=== PATIENT | female | born 1985 | race Caucasian/White ===

== ENCOUNTER 2017-09-14 09:50 | Emergency (ER) | payer OTHER ==
[~2017-09-14] VITALS: Ht 157.5 cm; Wt 84.5 kg
[~2017-09-14 09:50] MED LIST: ALPR1TAB3 PO
[2017-09-14 09:53] VITALS: TEMP 36.3; Ht 157.5 cm; Wt 84.5 kg
--- NOTE | 2017-09-14 10:18 | EMERGENCY ROOM VISIT NOTE ---
History Report prepared by Shanel: Magdalena Lance Under the Supervision of: Dr. Abad Hamilton M.D. 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 She currently rates her pain a 7/10 in severity. She notes a history of UTIs and kidney infections. She states her pain feels similar to when she previously had a kidney infection although she denies having urinary symptoms recently. She notes diarrhea that has been ongoing all year. She reports diarrhea every day. She denies any vomiting. She is unsure if she has had a recent fever, though states that she has been sweating a lot even during the cold weather. She notes that she has had her menstrual cycle once in 11 months. Her LNMP was May. She notes that she is not currently . She reports that two years ago she tested positive with Hepatitis C. She does admit to IV drug use in the past but has not used IV drugs in a very long time. She also notes sores on both arms. She has a history of sores, though they were previously located on her buttocks. She did require I&D at that time. She is unsure of any history of MRSA. She does state that she squeezed the sore near left arm and pus came out. She does not have a family doctor. She states that she does see a psychiatrist. 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 Review of Systems See HPI for pertinent positives & negatives. A total of 10 systems reviewed and were otherwise negative. Past Medical & Surgical Medical Problems: (1) Abscess (2) Hepatitis C (3) HTN (hypertension) (4) Kidney infection (5) UTI (urinary tract infection) Family History Cancer Hypertension Seizures Social History Smoking Status: Current Every Day Smoker Alcohol Use: none Occupation Status: employed Current/Historical Medications Scheduled Alprazolam (Xanax), 1 MG PO TID Doxycycline Hyclate (Vibramycin), 100 MG PO BID Gabapentin (Neurontin), 800 MG PO TID Ibuprofen (Ibuprofen), 800 MG PO TID Zolpidem Tartrate (Ambien), 10 MG PO HS Allergies Coded Allergies: Penicillins (Unverified Allergy, Unknown, UNKNOWN, 09/14/17) Sulfa Antibiotics (Unverified Allergy, Unknown, SWELLING, 09/14/17) Physical Exam Vital Signs Date Time Temp Pulse Resp B/P (MAP) Pulse Ox O2 Delivery O2 Flow Rate FiO2 09/14/17 13:10 89 129/70 99 09/14/17 09:53 36.3 100 18 129/75 98 Room Air Physical Exam Constitutional: Vital signs reviewed. Eyes: Pupils are equal round reactive to light. Conjunctiva are noninjected. ENT: Pharynx is clear without erythema or exudate. Mucous membranes are moist. Neck supple without meningeal signs. Respiratory: Clear to auscultation bilaterally. Breath sounds are equal bilaterally. Cardiovascular: Regular rate and rhythm. No rubs or gallops. GI: Soft, nondistended and nontender. Bowel sounds are present. Musculoskeletal: No peripheral edema. No lower extremity tenderness. No CVA tenderness. Integumentary: No cyanosis. One cm cutaneous abscess to left upper arm without drainage or cellulitis. Similar one cm abscess to right forearm without drainage or cellulitis. Neurological: The patient is awake and alert. No focal deficits. Psychiatric: Normal affect. Medical Decision & Procedures ER Provider Diagnostic Interpretation: Radiology results as stated below per my review and the radiologist's interpretation: CT OF THE ABDOMEN AND PELVIS WITHOUT CONTRAST, STONE PROTOCOL CLINICAL HISTORY: Right flank pain. Evaluate for stone. COMPARISON STUDY: None. TECHNIQUE: Helical axial images of the abdomen and pelvis were obtained without IV or oral contrast according to renal stone protocol. A dose lowering technique was utilized adhering to the principles of ALARA. FINDINGS: Lung bases are clear. A punctate 1 mm right renal calculus is noted. There are are no ureteral calculi. There is no hydronephrosis or hydroureter. Evaluation of the remainder of the abdomen and pelvis is suboptimal on this unenhanced exam. There is probable fatty infiltration of the liver. There is no biliary or pancreatic ductal dilatation. No calcified gallstones are noted. Equivocal gallbladder wall thickening is likely artifactual. Unenhanced images of the spleen, adrenal glands and pancreas are normal. There are diverticula of the second portion of the duodenum. There is no evidence for a bowel obstruction. The appendix is normal. Pelvic calcifications reflect phleboliths. The ovaries are not enlarged. There is no lymphadenopathy. There is no ascites. Suspected subcutaneous fat necrosis of the upper left buttock is noted. IMPRESSION: 1. Punctate 1 mm right renal calculus. No ureteral calculi or hydronephrosis. 2. No bowel obstruction. Normal appendix. 3. Probable fatty infiltration of the liver. 4. Equivocal gallbladder wall thickening, likely within normal limits. No pericholecystic infiltration. The findings are likely within normal limits however a right upper quadrant ultrasound could be obtained as indicated. 5. 5.1 cm subcutaneous abnormality of the upper left buttock. While nonspecific, this may reflect fat necrosis and could be correlated with trauma history. Electronically signed by: Apolinar Alford M.D. 09/14/2017 12:19 PM Dictated Date/Time: 09/14/2017 12:08 PM Laboratory Results 09/14/17 10:35 Red Blood Count 4.93, Mean Corpuscular Volume 89.0, Mean Corpuscular Hemoglobin 30.4, Mean Corpuscular Hemoglobin Concent 34.2, Mean Platelet Volume 9.5, Neutrophils (%) (Auto) 64.8, Lymphocytes (%) (Auto) 23.8, Monocytes (%) (Auto) 9.0, Eosinophils (%) (Auto) 1.7, Basophils (%) (Auto) 0.4, Neutrophils # (Auto) 7.53, Lymphocytes # (Auto) 2.76, Monocytes # (Auto) 1.05, Eosinophils # (Auto) 0.20, Basophils # (Auto) 0.05 09/14/17 10:35 Test 09/14/17 00:00 09/14/17 10:35 09/14/17 12:12 Urine Color YELLOW Urine Appearance CLEAR (CLEAR) Urine pH 6.0 (4.5-7.5) Urine Specific [place] 1.011 (1.000-1.030) Urine Protein NEG (NEG) Urine Glucose (UA) NEG (NEG) Urine Ketones NEG (NEG) Urine Occult Blood NEG (NEG) Urine Nitrite NEG (NEG) Urine Bilirubin NEG (NEG) Urine Urobilinogen NEG (NEG) Urine Leukocyte Esterase TRACE (NEG) Urine WBC (Auto) 1-5 /hpf (0-5) Urine RBC (Auto) 0-4 /hpf (0-4) Urine Hyaline Casts (Auto) 0 /lpf (0-5) Urine Epithelial Cells (Auto) >30 /lpf (0-5) Urine Bacteria (Auto) NEG (NEG) Urine Test NEG (NEG) White Blood Count 11.62 K/uL (4.8-10.8) Red Blood Count 4.93 M/uL (4.2-5.4) Hemoglobin 15.0 g/dL (12.0-16.0) Hematocrit 43.9 % (37-47) Mean Corpuscular Volume 89.0 fL (80-100) Mean Corpuscular Hemoglobin 30.4 pg (25-34) Mean Corpuscular Hemoglobin Concent 34.2 g/dl (32-36) Platelet Count 360 K/uL (130-400) Mean Platelet Volume 9.5 fL (7.4-10.4) Neutrophils (%) (Auto) 64.8 % Lymphocytes (%) (Auto) 23.8 % Monocytes (%) (Auto) 9.0 % Eosinophils (%) (Auto) 1.7 % Basophils (%) (Auto) 0.4 % Neutrophils # (Auto) 7.53 K/uL (1.4-6.5) Lymphocytes # (Auto) 2.76 K/uL (1.2-3.4) Monocytes # (Auto) 1.05 K/uL (0.11-0.59) Eosinophils # (Auto) 0.20 K/uL (0-0.5) Basophils # (Auto) 0.05 K/uL (0-0.2) RDW Standard Deviation 44.3 fL (36.4-46.3) RDW Coefficient of Variation 13.5 % (11.5-14.5) Immature Granulocyte % (Auto) 0.3 % Immature Granulocyte # (Auto) 0.03 K/uL (0.00-0.02) Anion Gap 6.0 mmol/L (3-11) Est Creatinine Clear Calc Drug Dose 117.4 ml/min Estimated GFR () 133.8 Estimated GFR (Non- 115.5 BUN/Creatinine Ratio 8.7 (10-20) Calcium Level 9.2 mg/dl (8.5-10.1) Total Bilirubin 0.2 mg/dl (0.2-1) Direct Bilirubin < 0.1 mg/dl (0-0.2) Aspartate Amino Transf (AST/SGOT) 51 U/L (15-37) Alanine Aminotransferase (ALT/SGPT) 96 U/L (12-78) Alkaline Phosphatase 101 U/L (45-117) Total Protein 8.4 gm/dl (6.4-8.2) Albumin 4.3 gm/dl (3.4-5.0) Prothrombin Time 10.6 SECONDS (9.0-12.0) Prothromb Time International Ratio 1.0 (0.9-1.1) Activated Partial Thromboplast Time 26.8 SECONDS (21.0-31.0) Partial Thromboplastin Ratio 1.0 Date/Time Source Procedure Growth Status 09/14/17 11:50 Nasal MRSA DNA Surveillance Screen - Final Specimen Negative for MRSA by DNA Probe Complete Laboratory results as reviewed by me. ED Course 1001: The patient was evaluated in room B10. A complete history and physical exam was performed. 1135: I reassessed the patient at this time. I discussed the results and treatment plan with the patient. I recommended a CT A/P and the patient agreed. 1236: I reassessed the patient at this time. She is feeling better and resting comfortably. I discussed the results and treatment plan with the patient. I answered all pertaining questions that she had. She expressed understanding and verbalized agreement. The patient will be discharged home. Medical Decision This is a 31-year-old female who presents with flank pain, chronic diarrhea, irregular periods and sores. Differential diagnosis includes UTI, pyelonephritis, MRSA, cutaneous abscess, functional diarrhea, dysmenorrhea. I did perform a limited focused review of portions of the patient's old chart on the electronic medical record. The patient has had no prior visits to this hospital. I did evaluate the patient as noted above. The patient is presenting today with mostly chronic symptoms. She has not seen a doctor in a long time other than her psychiatrist. She has multiple chronic conditions including irregular menstrual cycles. She also complains of chronic diarrhea which has been going on for over a year. She has right-sided flank pain which has been going on for 2 months without urinary symptoms. She has a cutaneous abscess on her left upper arm and right forearm. They do not require I&D. IV access was established. I did order and personally review the patient's urinalysis as described above. A urine culture was sent. MRSA screening nasal swab is negative. I did order and review the patient's blood work as noted in the electronic medical record. Her LFTs are slightly elevated. She does have a history of hepatitis C. I did order a CT of the abdomen and pelvis. I did review the images myself as well as the radiology report as described above. There was some questionable gallbladder wall thickening but the patient has no pain in that area. I did discuss the test results with the patient. I did recommend she follow up with a primary care physician as well as a political organizer for further evaluation. I did recommend treating her with antibiotics to cover MRSA for her abscesses. She was given a prescription for doxycycline and discharged in good condition. Medication Reconcilliation Current Medication List: was personally reviewed by me Blood Pressure Screening Patient's blood pressure: Elevated blood pressure Blood pressure disposition: Referred to PCP Impression Primary Impression: Right flank pain Additional Impressions: Amenorrhea Cutaneous abscess Scribe Attestation The scribe's documentation has been prepared under my direct and personally reviewed by me in its entirety. I confirm that the note above accurately reflects all work, treatment, procedures, and medical decision making performed by me. Departure Information Dispostion Home / Self-Care Prescriptions Doxycycline Hyclate (VIBRAMYCIN) 100 Mg Cap 100 MG PO BID for 10 Days, #20 CAP Prov: Abad Hamilton M.D. 09/14/17 Referrals No Doctor, Assigned (PCP) Forms HOME CARE DOCUMENTATION FORM, IMPORTANT VISIT INFORMATION, WORK / SCHOOL INSTRUCTIONS Patient Instructions ED Amenorrhea, ED Flank Pain Uncertain Cause, My [facility] Additional Instructions You have been examined and treated today on an emergency basis only. This is not a substitute for, or an effort to provide, complete comprehensive medical care. It is impossible to recognize and treat all injuries or illnesses in a single emergency department visit. It is therefore important that you follow up closely with your physician and political organizer. Call as soon as possible for an appointment. Return for worsening symptoms or if you develop fever, vomiting, or any other concerning symptoms. Problem Qualifiers Additional Impressions: Cutaneous abscess Site of cutaneous abscess: extremity Site of cutaneous abscess of extremity: upper extremity Laterality: unspecified laterality Qualified Codes: L02.419 - Cutaneous abscess of limb, unspecified
[2017-09-14] MEDS ORDERED: GABA800T PO (10:55)
[2017-09-14] MEDS ORDERED: MTR800 PO (10:55)
[2017-09-14] MEDS ORDERED: ZOLP10TA PO (10:55)
[2017-09-14 10:59] LABS: BASO % 0.4 %; BASO ABS # 0.05 K/uL (0-0.2); EOS % 1.7 %; HEMATOCRIT 43.9 % (37-47); IG# 0.03 K/uL (0.00-0.02); LYMPH % 23.8 %; LYMPH ABS # 2.76 K/uL (1.2-3.4); MEAN CORPUSCULAR HEMOGLOBIN 30.4 pg (25-34); MEAN CORPUSCULAR HGB CONC 34.2 g/dl (32-36); MEAN PLATELET VOLUME 9.5 fL (7.4-10.4); MONO ABS # 1.05 K/uL (0.11-0.59); NEUT % 64.8 %; NEUT ABS # 7.53 K/uL (1.4-6.5); PLATELET COUNT 360 K/uL (130-400); RED CELL DISTRIBUTION WIDTH CV 13.5 % (11.5-14.5); RED CELL DISTRIBUTION WIDTH SD 44.3 fL (36.4-46.3); WHITE BLOOD COUNT 11.62 K/uL (4.8-10.8)
[2017-09-14 11:16] LABS: ALBUMIN 4.3 gm/dl (3.4-5.0); ALT/SGPT 96 U/L (12-78); AST/SGOT 51 U/L (15-37); BLOOD UREA NITROGEN 6 mg/dl (7-18); CALCIUM 9.2 mg/dl (8.5-10.1); CARBON DIOXIDE 24 mmol/L (21-32); GLUCOSE 108 mg/dl (70-99); POTASSIUM 3.6 mmol/L (3.5-5.1); SODIUM 135 mmol/L (136-145)
[2017-09-14 11:19] LABS: ALKALINE PHOSPHATASE 101 U/L (45-117); TOTAL PROTEIN 8.4 gm/dl (6.4-8.2)
--- NOTE | 2017-09-14 12:20 | DIAGNOSTIC IMAGING REPORT ---
CT OF THE ABDOMEN AND PELVIS WITHOUT CONTRAST, STONE PROTOCOL CLINICAL HISTORY: Right flank pain. Evaluate for stone. COMPARISON STUDY: None. TECHNIQUE: Helical axial images of the abdomen and pelvis were obtained without IV or oral contrast according to renal stone protocol. A dose lowering technique was utilized adhering to the principles of ALARA. FINDINGS: Lung bases are clear. A punctate 1 mm right renal calculus is noted. There are are no ureteral calculi. There is no hydronephrosis or hydroureter. Evaluation of the remainder of the abdomen and pelvis is suboptimal on this unenhanced exam. There is probable fatty infiltration of the liver. There is no biliary or pancreatic ductal dilatation. No calcified gallstones are noted. Equivocal gallbladder wall thickening is likely artifactual. Unenhanced images of the spleen, adrenal glands and pancreas are normal. There are diverticula of the second portion of the duodenum. There is no evidence for a bowel obstruction. The appendix is normal. Pelvic calcifications reflect phleboliths. The ovaries are not enlarged. There is no lymphadenopathy. There is no ascites. Suspected subcutaneous fat necrosis of the upper left buttock is noted. IMPRESSION: 1. Punctate 1 mm right renal calculus. No ureteral calculi or hydronephrosis. 2. No bowel obstruction. Normal appendix. 3. Probable fatty infiltration of the liver. 4. Equivocal gallbladder wall thickening, likely within normal limits. No pericholecystic infiltration. The findings are likely within normal limits however a right upper quadrant ultrasound could be obtained as indicated. 5. 5.1 cm subcutaneous abnormality of the upper left buttock. While nonspecific, this may reflect fat necrosis and could be correlated with trauma history. Electronically signed by: Apolinar Alford M.D. 09/14/2017 12:19 PM Dictated Date/Time: 09/14/2017 12:08 PM
[2017-09-14] MEDS ORDERED: DOXY100C2 PO (12:42)
[2017-09-14 12:45] LABS: PTT PATIENT 26.8 SECONDS (21.0-31.0)
[2017-09-14 13:10] VITALS: BP 129/70; PULSE 89; O2SAT 99
== END 2017-09-14 13:13 | disposition home or self-care (01) ==
LOC: C.EDB 09:52
DX: N91.2 Amenorrhea, unspecified (principal); L02.91 Cutaneous abscess, unspecified; R10.30 Lower abdominal pain, unspecified; I10 Essential (primary) hypertension; B19.20 Unspecified viral hepatitis C without hepatic coma; F17.200 Nicotine dependence, unspecified, uncomplicated; Z86.19 Personal history of other infectious and parasitic diseases; Z87.440 Personal history of urinary (tract) infections; Z79.899 Other long term (current) drug therapy; Z88.0 Allergy status to penicillin; Z88.2 Allergy status to sulfonamides; Z80.9 Family history of malignant neoplasm, unspecified; Z82.49 Family history of ischemic heart disease and other diseases of the circulatory system; Z82.3 Family history of stroke

== ENCOUNTER 2017-10-07 09:19 | Emergency (ER) | payer OTHER ==
[~2017-10-07] VITALS: Ht 160 cm; Wt 86.5 kg
[~2017-10-07 09:19] MED LIST changes: +DOXY100C2 PO; +GABA800T PO; +MTR800 PO; +ZOLP10TA PO
[2017-10-07 09:20] VITALS: TEMP 36.7; Ht 160 cm; Wt 86.5 kg
[2017-10-07] MEDS ORDERED: CLIN300C2 PO (09:49)
--- NOTE | 2017-10-07 09:51 | EMERGENCY ROOM VISIT NOTE ---
ED Visit Note First contact with patient: 09:32 CHIEF COMPLAINT: Multiple skin wounds HISTORY OF PRESENT ILLNESS: This 32-year-old female patient presents to the emergency department, ambulatory, complaining of multiple skin wounds which she noticed yesterday. The patient states she has history of chronic MRSA infections, and does get skin infections frequently. She states yesterday, she noticed drainage from one wound on the left breast running down her shirt. She states there was "a lot of drainage". There is no active drainage at this time. The patient denies any systemic symptoms including fever, chills nausea, vomiting. She denies any redness or cellulitic changes surrounding the wounds. She does have multiple wounds on the bilateral breasts, chest wall, and anterior arms. She does have a history of IV drug use, but states she has not used any IV drugs recently. She has not scheduled a follow-up appointment with her primary care provider. The patient was recently on doxycycline for the infections. She states she did not notice much improvement in her symptoms with this treatment. REVIEW OF SYSTEMS: A 10 system review of systems was performed with positives and pertinent negatives listed in the history of present illness. All other systems were reviewed and are negative. ALLERGIES: Penicillin, sulfa MEDICATIONS: Xanax, gabapentin, ibuprofen, Ambien PMH: Chronic MRSA SOCIAL HISTORY: The patient lives locally with family. She denies drug, alcohol use. She admits to smoking Half Pack of Cigarettes per Day. PHYSICAL EXAM: VITALS: Vitals are noted on the nurse's note and reviewed by myself. Vital signs stable. GENERAL: This is a 32-year-old white female, in no acute distress, nondiaphoretic, well-developed well-nourished. SKIN: Multiple cutaneous nodules which are scabbed over on the bilateral forearms, upper arms, and breasts. There is no active drainage. No cellulitic changes or obvious abscess. EMERGENCY DEPARTMENT COURSE: The patient was seen in the emergency department as above. She appears to be suffering from chronic cutaneous abscesses, but there is no obvious cellulitis or drainable abscess noted on exam. I did review the patient's previous EMR, and the patient's hepatic function testing was elevated, but she does have a history of chronic hepatitis C. The patient does not note significant improvement while on doxycycline, so she will be switched to clindamycin. I did discuss with the patient the importance of outpatient follow-up, as she may need to be started on suppressive therapy. The patient was in agreement. Discharge instructions reviewed, the patient was discharged home in good condition. I attest that I have personally reviewed the patient's current medication list. Patient was found to have normal blood pressure on screening and does not require follow-up. Differential diagnosis includes cutaneous abscess, cellulitis, IV drug use, cyst , hepatic abnormality, chronic infection, malignancy, and others DIAGNOSIS: Multiple cutaneous abscesses Problem List Medical Problems: (1) Abscess Status: Resolved (2) Hepatitis C Status: Chronic (3) HTN (hypertension) Status: Chronic (4) Kidney infection Status: Resolved (5) UTI (urinary tract infection) Status: Resolved Current/Historical Medications Scheduled Alprazolam (Xanax), 1 MG PO TID Clindamycin Hcl (Cleocin), 300 MG PO QID Doxycycline Hyclate (Vibramycin), 100 MG PO BID Gabapentin (Neurontin), 800 MG PO TID Ibuprofen (Ibuprofen), 800 MG PO TID Zolpidem Tartrate (Ambien), 10 MG PO HS Allergies Coded Allergies: Penicillins (Unverified Allergy, Unknown, UNKNOWN, 09/14/17) Sulfa Antibiotics (Unverified Allergy, Unknown, SWELLING, 09/14/17) Vital Signs Date Time Temp Pulse Resp B/P (MAP) Pulse Ox O2 Delivery O2 Flow Rate FiO2 10/07/17 10:00 96 18 129/79 97 10/07/17 09:20 36.7 96 18 129/79 97 Room Air Departure Information Impression Primary Impression: Cutaneous abscess Dispostion Home / Self-Care Condition GOOD Prescriptions Clindamycin Hcl (CLEOCIN) 300 Mg Cap 300 MG PO QID for 10 Days, #40 CAP Prov: Laurie Cavazos PA-C 10/07/17 Referrals No Doctor, Assigned (PCP) Patient Instructions ED Skin Infec MRSA Suspect Conf, My [facility] Additional Instructions You were seen in the emergency department today for multiple skin infections. As discussed, none of these appear to be abscesses which are drainable. I do suspect chronic infection. You were prescribed clindamycin to be taken 4 times daily. This is an antibiotic. All antibiotics have the potential to cause diarrhea. Stop this medication and contact a medical provider if you were to develop any significant adverse side effects including: wheezing, shortness of breath, passing out, vomiting, or a diffuse rash. Always take antibiotics as directed and COMPLETE the ENTIRE course regardless of the improvement of your symptoms. I do recommend a probiotic in addition to the clindamycin, as there is a high risk of C. difficile diarrhea. He may use a line [id number] or consider eating activity a yogurt. Please follow up with a primary care provider in one week. As discussed, I suspect you may need a chronic, long-term medication to help prevent outbreaks. You may also want to consider dermatology referral. Return to the emergency department for fever, chills, systemic symptoms, or other concerns. Problem Qualifiers Primary Impression: Cutaneous abscess Site of cutaneous abscess: trunk Site of cutaneous abscess of trunk: unspecified site Qualified Codes: L02.219 - Cutaneous abscess of trunk, unspecified
[2017-10-07 10:00] VITALS: BP 129/79; PULSE 96; O2SAT 97
== END 2017-10-07 10:21 | disposition home or self-care (01) ==
LOC: C.EDB 09:21
DX: L02.219 Cutaneous abscess of trunk, unspecified (principal); Z79.899 Other long term (current) drug therapy; F17.210 Nicotine dependence, cigarettes, uncomplicated; B18.2 Chronic viral hepatitis C; I10 Essential (primary) hypertension; Z87.440 Personal history of urinary (tract) infections

== ENCOUNTER 2020-12-01 10:07 | Inpatient (IN) ==
[2020-12-01] MEDS ORDERED: LORazepam 1 MG TAB SL STA (10:13)
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
[2020-12-01 10:33] LABS: Appearance Urine Turbid (Clear); Bacteria Urine Automated 2+ (Negative); Bilirubin Urine Negative (Negative); Blood Urine Negative (Negative); Color Urine Yellow; Epithelial Cell Urine Auto >30 /lpf (0-5); Glucose Urine UA Negative (Negative); Ketones Urine Trace (Negative); Leukocyte Esterase Urine Negative (Negative); Nitrite Urine Negative (Negative); Protein Urine 1+ (Negative); RBC Urine Automated 0-4 /hpf (0-4); Urobilinogen Urine Negative (Negative); WBC Urine Automated >30 /hpf (0-5); pH Urine 6.5 (4.5-7.5)
[2020-12-01 10:42] LABS: Pregnancy Test, Urine Negative (Negative)
[2020-12-01 10:52] LABS: Basophils # (auto) 0.04 K/uL (0-0.2); Basophils % (auto) 0.4 %; Eosinophils # (auto) 0.06 K/uL (0-0.5); Eosinophils % (auto) 0.6 %; Hematocrit (blood only) 41.5 % (37-47); Hemoglobin 15.4 g/dL (12.0-16.0); Immature Granulocytes # (auto) 0.02 K/uL (0.00-0.02); Immature Granulocytes % (auto) 0.2 %; Lymphocytes # (auto) 1.84 K/uL (1.2-3.4); Lymphocytes % (auto) 16.9 %; Mean Corpuscular Hemoglobin 32.6 pg (25-34); Mean Corpuscular Hgb Conc 37.1 g/dL (32-36); Mean Corpuscular Volume 87.9 fL (80-100); Mean Platelet Volume 9.6 fL (7.4-10.4); Monocytes # (auto) 1.22 K/uL (0.11-0.59); Monocytes % (auto) 11.2 %; Neutrophils # (auto) 7.72 K/uL (1.4-6.5); Neutrophils % (auto) 70.7 %; Platelet Count 324 K/uL (130-400); RDW Standard Deviation 42.3 fL (36.4-46.3); Red Blood Count 4.72 M/uL (4.2-5.4)
[2020-12-01 10:58] LABS: Amphetamines+Metham, Urine Pos (Neg); Barbiturates, Urine Neg (Neg); Benzodiazepine, Urine Pos (Neg); Cocaine, Urine Neg (Neg); MDMA (Ecstacy), Urine Pos (Neg); Methadone, Urine Neg (Neg); Opiate, Urine Neg (Neg); Phencyclidine, Urine Neg (Neg)
[2020-12-01 11:07] LABS: Albumin Level 4.4 gm/dl (3.4-5.0); BUN Creatinine Ratio 10.5 (10-20); Calcium 9.4 mg/dl (8.5-10.1); Creatinine Clr Calc Pharmacy 78.5 ml/min; Est GFR (African American) 91.1; Est GFR (Non-African American) 78.6; Potassium 3.7 mmol/L (3.5-5.1)
[2020-12-01 11:09] LABS: Acetaminophen < 2 ug/ml (10-30); Salicylate 1.9 mg/dl (2.8-20)
[2020-12-01 11:18] LABS: Albumin Globulin Ratio 1.3 (0.9-2); Bilirubin,Total 0.9 mg/dl (0.2-1); Globulin 3.5 gm/dl (2.5-4.0); Thyroid Stimulating Hormone 2.19 uIu/ml (0.300-4.500); Total Protein 7.9 gm/dl (6.4-8.2)
--- NOTE | 2020-12-01 12:35 | XRay Report ---
SINGLE VIEW CHEST CLINICAL HISTORY: Cough and fever. FINDINGS: An AP, portable, upright chest radiograph is compared to study dated 03/28/2020. The cardiom ediastinal silhouette is unremarkable. The lungs and pleural spaces are clear. No pneumothorax is see n. The bony thorax is grossly intact. IMPRESSION: No active disease in the chest. ACT 112: Negative or not required by law. Electronically signed by: Maciel Bolivar M.D. 12/01/2020 12:34 PM
[2020-12-01 14:31] LABS: Influenza A virus by PCR Negative (Neg); Influenza B virus by PCR Negative (Neg); RSV by PCR Negative (Neg); SARS CoV2 RNA(COVID-19) InHosp NEGATIVE (Negative)
[2020-12-01] MEDS ORDERED: SODIUM CHLORIDE 0.65% NA SOLN 45 ML (OCEAN) PRN (15:20)
[2020-12-01] MEDS ORDERED: ALUMINUM/MAGNESIUM SUSP 30 ML UDC PO PRN (15:20)
[2020-12-01] MEDS ORDERED: MAGNESIUM HYDROXIDE SUSP 30 ML UDC PO PRN (15:20)
[2020-12-01] MEDS ORDERED: hydrOXYzine HCl 25 MG TAB PO PRN (15:20)
[2020-12-01] MEDS ORDERED: BISMUTH SUBSALICYLATE LIQD 236 ML PO PRN (15:20)
[2020-12-01] MEDS ORDERED: QUEtiapine FUMARATE 25 MG TABLET PO PRN (15:31)
[2020-12-01] MEDS: LORazepam 1 MG TAB PO PRN (22:04)
[2020-12-01] MEDS: QUEtiapine FUMARATE 100 MG TABLET PO SCH (22:04)
[2020-12-02 08:41] LABS: Glucose Fasting 87 mg/dl (70-99)
[2020-12-02 08:42] LABS: Chol HDL Ratio 5; Cholesterol 161 mg/dl (0-200); HDL Cholesterol 35 mg/dl; LDL Cholesterol Calculated 107 mg/dl; Triglycerides 97 mg/dl (0-150); VLDL Cholesterol 19 mg/dl
[2020-12-02] MEDS: LORazepam 1 MG TAB PO PRN ×2 (12:37→20:05)
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
[2020-12-02] MEDS: hydrOXYzine HCl 25 MG TAB PO PRN (15:33)
[2020-12-02 16:34] LABS: Appearance Urine Clear (Clear); Bilirubin Urine Negative (Negative); Blood Urine Negative (Negative); Color Urine Yellow; Glucose Urine UA Negative (Negative); Ketones Urine Trace (Negative); Leukocyte Esterase Urine Negative (Negative); Nitrite Urine Negative (Negative); Protein Urine Negative (Negative); Specific Gravity Urine 1.013 (1.000-1.030); Urobilinogen Urine Negative (Negative); pH Urine 6.5 (4.5-7.5)
[2020-12-02] MEDS: QUEtiapine FUMARATE 100 MG TABLET PO SCH (21:58)
--- NOTE | 2020-12-03 09:05 | Psychiatric Progress Note ---
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 She is more organized than expected today given her admission presentation so I assume Seroquel is providing some benefit though it's unclear whether she is willing to take it longer term. She is only able to identify a brother as support. (1) Acute paranoia: 12/02 The patient was admitted to the [facility] ([facility]) on q15 min checks (behavioral with suicide precautions) for safety. The patient will participate in group, recreational, and milieu therapies and will be offered additional individual and family sessions as clinically appropriate. likely drug induced, continue Seroquel as is accepting doses when offered. She was made aware I am not resuming Xanax and will cover withdrawal with prn Ativan. I'm concerned about neurontin use given abuse potential as well. Very poor historian at this point so staff to gather records. Fasting glu and cholesterol panel completed this am as anticipated she will be discharged on some form of atypical. 12/03 - Continue quetiapine - patient refusing to consider higher dosage, but agreeable with taking medication "just at bedtime." Pt is denying confusion, paranoia, delusions during conversation with this provider, though I'm not inclined to believe this is a reliable report. Continue to engage patient in treatment as appropriate with ongoing monitoring for delusions. - Ordered a scheduled taper for lorazepam, patient reminded of plan for disco ntinuation. Inventory Assets Strengths: accepting of status/treatment so far Needs: outpatient provider Risk Factors Assessment Male: No : Yes Do You Have Access To A Gun?: No Mental Health Diagnoses: Yes Substance Use Disorders: Yes (presumably) Previous Attempt: No Previous Psychiatric Hospitalization: Yes Smoker: Yes Protective Factors Assessment Employed: No Interval History Identifying Information JALIL COOPER is a 35-year-old F who currently lives in [place] alone, has a history of presenting to ED with delusional behavior, and was admitted on 12/01/20 15:21 on a 201 voluntary 302 involuntary commitment for disorganized and delusional behavior. Chief Complaint "Um, I'm fine thank you." Review of Systems Notes Constitutional: "just anxiety" Cardiovascular: denied Respiratory: denied Gastrointestinal: denied Neurological: denied Psychiatric: denies symptoms other than stated above Total of at least 10 systems reviewed, pertinent positives as above and in HPI. Sleep Information Total Hours of Sleep: 7.25 Sleep Comments: pt on q-15 minute checks Meal Information Percent Meal Consumed - Breakfast: 100 Percent Meal Consumed - Lunch: 100 Percent Meal Consumed - Dinner: 75 Subjective Subjective Patient was seen & assessed and interval progress reviewed with nursing and social work. Staff report the patient was excused from groups yesterday and had little interaction with peers. Pt will need a referral for new outpatient psychiatric prescriber. Maintain MNPR for psychosis. Pt was seen today to asses progress since admission. Pt appeared constricted and timid with conversation, but was polite and appropriate. She stated "Um, I'm fine thank you." Pt seemed to reluctantly engage in superficial conversation, but did seem to minimize reports about what led to her admission. Pt states "I was just walking around and I was upset." When asked what led to her feeling upset, she deflected the question and stated only "I guess I was anxious." Pt states she had been "upset" for a few days, so came to the ED. Pt was asked numerous questions related to the presence of delusional or paranoid thinking. She consistently denied this, stating only "just anxiety." Pt was offered to adjust dosage of quetiapine as it seems to be helpful, but patent states "I'm only taking it at bed time, and that dose was fine. No more please." Pt was reminded of as needed doses available during the day. Pt was also reminded of plans to taper lorazepam to discontinuation. Pt agreed with this and was willing for a scheduled taper. Pt denies SI/HI and maintains that she is not experiencing delusions - though this information is not clearly reliable. Pt denied other needs or concerns today. Physical Exam Psychiatric Orientation: alert, oriented x 3 and + guarded (timid, reluctant to engage in conversation) Apperance: appropriately dressed, + disheveled and appeared stated age Hair appearing unkempt, dressed in casual clothing (t-shirt and sweat pants) Eye Contact: + fair eye contact Motor Behavior: no abnormal motor movements Speech: normal rate/rhythm/volume of speech (soft tone, only brief responses to questions) Affect: + constricted affect (body language is timid, appearing uncomfortable in conversation) Mood: + anxious mood ("just anxiety"); no depressed mood Thought Process: + concrete thought process Thought Content: Difficult to fully assess given patient's reluctance to engage in conversation. Although she denies delusions/paranoia during our conversation, this information is unlikely to be reliable. Suicidal Thoughts: denies suicidal thoughts Homicidal Thoughts: denies homicidal thoughts Hallucinations: no auditory hallucinations and no visual hallucinations Cognition: attention grossly intact and language grossly intact; + recent memory not intact (either does not recall or is misrepresenting) Insight: + poor insight Judgement: + poor judgement Vital Signs (Past 24 Hours) Last Vital Signs Temp 36.7 C 12/03/20 06:51 Pulse 120 H 12/03/20 06:52 Resp 16 12/03/20 06:51 BP 98/67 L 12/03/20 06:52 Pulse Ox 97 12/01/20 15:00 Results & Data ([facility]) Laboratory Results Laboratory Results - last 24 hr 12/02/20 Unknown Urine Color Yellow Urine Appearance Clear Urine pH 6.5 Ur Specific [place] 1.013 Urine Protein Negative Urine Glucose (UA) Negative Urine Ketones Trace H Urine Blood Negative Urine Nitrite Negative Urine Bilirubin Negative Urine Urobilinogen Negative Ur Leukocyte Esterase Negative Current Inpatient Medications Current Inpatient Medications: Current Inpatient Medications Acetaminophen (Acetaminophen 325 Mg Tab) 650 mg PO Q4H PRN PRN Reason: Headache or Minor Fever Stop: 12/31/20 15:19 Al Hydrox/Mg Hydrox/Simethicone (Aluminum/Magnesium Susp 30 Ml Udc) 30 ml PO Q4H PRN PRN Reason: GI Upset Stop: 12/31/20 15:19 Bismuth Subsalicylate (Bismuth Subsalicylate Liqd 236 Ml) 15 ml PO PRN PRN PRN Reason: Loose Stool Stop: 12/31/20 15:19 Hydroxyzine HCl (Hydroxyzine Hcl 25 Mg Tab) 50 mg PO HSZ PRN PRN Reason: Insomnia Stop: 12/31/20 15:19 Hydroxyzine HCl (Hydroxyzine Hcl 25 Mg Tab) 25 mg PO Q4H PRN PRN Reason: Anxiety Stop: 12/31/20 15:19 Lorazepam (Lorazepam 1 Mg Tab) 1 mg PO Q6 PRN PRN Reason: Anxiety/Insomnia Stop: 12/31/20 15:28 Last Admin: 12/02/20 20:05 Dose: 1 mg Documented by: Magnesium Hydroxide (Magnesium Hydroxide Susp 30 Ml Udc) 30 ml PO DAILY PRN PRN Reason: Constipation Stop: 12/31/20 15:19 Quetiapine Fumarate (Quetiapine Fumarate 100 Mg Tablet) 100 mg PO HS NOHEMY Stop: 12/31/20 20:59 Last Admin: 12/02/20 21:58 Dose: 100 mg Documented by: Quetiapine Fumarate (Quetiapine Fumarate 25 Mg Tablet) 50 mg PO Q6 PRN PRN Reason: Anxiety/Agitation Stop: 12/31/20 17:59 Sodium Chloride (Sodium Chloride 0.65% Na Soln 45 Ml ([place])) 1 - 2 sprays NA PRN PRN PRN Reason: Nasal Dryness/Congestion Stop: 12/31/20 15:19 Mental Health & Subst Abuse Tx Therapist Name of Therapist: @[facility]
[2020-12-03] MEDS: LORazepam 1 MG TAB PO SCH ×2 (09:59→20:11)
[2020-12-03] MEDS: QUEtiapine FUMARATE 100 MG TABLET PO SCH (20:12)
--- NOTE | 2020-12-04 06:07 | Psychiatric Progress Note ---
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 She has only been willing for low dose Seroquel at bedtime, and is refusing groups, isolating in her room. (1) Acute paranoia: 12/02 The patient was admitted to the [facility] ([facility]) on q15 min checks (behavioral with suicide precautions) for safety. The patient will participate in group, recreational, and milieu therapies and will be offered additional individual and family sessions as clinically appropriate. likely drug induced, continue Seroquel as is accepting doses when offered. She was made aware I am not resuming Xanax and will cover withdrawal with prn Ativan. I'm concerned about neurontin use given abuse potential as well. Very poor historian at this point so staff to gather records. Fasting glu and cholesterol panel completed this am as anticipated she will be discharged on some form of atypical. 12/03 - Continue quetiapine - patient refusing to consider higher dosage, but agreeable with taking medication "just at bedtime." Pt is denying confusion, paranoia, delusions during conversation with this provider, though I'm not inclined to believe this is a reliable report. Continue to engage patient in treatment as appropriate with ongoing monitoring for delusions. - Ordered a scheduled taper for lorazepam, patient reminded of plan for discontinuation. 12/04 -Patient remains disorganized, cognitively impaired, unclear how close she is to baseline as she has been unable to identify a support for collateral i nformation. She is isolating in her room and refusing groups, which makes it more difficult to tell how well she is functioning. Encouraged her to be out of her room, participating in groups, and working on her coping skills. -Psychosis appears substance-induced, as she has had multiple drug screens + methamphetamine and benzodiazepines in the past 3 months. Despite laboratory evidence of meth use, she continues to deny it, and is likewise not honest about her legal problems. She continues to refuse the recommendation for inpatient rehab, but is willing for IOP and has been referred to [facility]. (2) Methamphetamine abuse: 12/04 - UDS + methamphetamine/amphetamine, MDMA, benzodiazepines -Complete taper off benzodiazepines, and do not recommend she be prescribed controlled substances due to her ongoing substance abuse, DUI, and high risk of abuse/misuse/negative outcomes. -Will submit mandated report form to [facility] given driving while intoxicated, ongoing substance use. Patient informed, advised not to drive until she has become sober, is stable, and cleared by her outpatient physician. Inventory Assets Strengths: accepting of status/treatment so far Needs: outpatient provider Risk Factors Assessment Male: No : Yes Do You Have Access To A Gun?: No Mental Health Diagnoses: Yes Substance Use Disorders: Yes (presumably) Previous Attempt: No Previous Psychiatric Hospitalization: Yes Smoker: Yes Protective Factors Assessment Employed: No Interval History Identifying Information JALIL COOPER is a 35-year-old F who currently lives in [place] alone, has a history of presenting to ED with delusional behavior, and was admitted on 12/01/20 15:21 on a 201 voluntary 302 involuntary commitment for disorganized and delusional behavior. Chief Complaint "I had a bad time with my mom, I think she's out of town". Review of Systems Sleep Information Total Hours of Sleep: 7.25 Sleep Comments: pt on q-15 minute checks Meal Information Percent Meal Consumed - Breakfast: 100 Percent Meal Consumed - Lunch: 100 Percent Meal Consumed - Dinner: 100 Subjective Subjective Patient was seen & assessed and interval progress reviewed with treatment team. Staff report the patient continues to refuse recommendations for inpatient rehab, but did allow referral to [facility] for IOP. She declined a family meeting, appeared unable to manipulate information or understand the discussion. She was poorly engaged, when attended groups gave only 1-2 word answers, and displayed circular/illogical reasoning. She isolates in her room during free time. On my assessment today she was seen in her room where she had returned to bed after breakfast and remained morning, refusing groups. She was lying in bed but awake. States she is here because "a lot of emotions come up," which she attributes to her mother, although cannot further explain events prior to admission. States she lost her car and hasn't yet located it, saying she "blacked out." She denies illicit drug use, although reviewed UDS results with her which was + for amphetamine/methamphetamine, MDMA, and benzodiazepines, confirmatory test still pending. She also had a UDS 09/21/2020 which was p ositive for benzodiazepines (confirmatory positive for alprazolam), amphetamine/methamphetamine (confirmatory positive for methamphetamine). She continues to insist she does not use any illicit drugs. Also asked her about her legal problems, as she has given inconsistent reports, and she initially denied having any to me, but when reflected back her own statements that she has upcoming court dates, she admits that she has multiple upcoming court dates. She initially denies that these are related to substance use, but then admits to DUI and drug charges. Discussed concerns about her driving given her ongoing controlled substance use and perceptual alterations. Advised her that the recommendation is she not drive until she has become sober and stabilized sufficiently. She voiced understanding, but not necessarily agreement to follow these recommendations, stating she needed to drive if she is planning to move into her own place soon. When asked about that, she changed her story, stating she would probably just go live with a friend, and seemed confused about her housing situation. She says she still has not called her roommate, Dirk, and mentions another roommate, Betsy. Physical Exam Psychiatric Orientation: alert and cooperative (But a poor historian, not forthcoming with information) Female appearing her stated age, well-nourished and well-developed. Short dyed blonde hair that is unkempt and disheveled. Lying in bed awake and in no acute distress. Eye Contact: + poor eye contact Motor Behavior: no abnormal motor movements Speech: normal rate/rhythm/volume of speech Affect: + blunted affect "Okay." Thought Process: + concrete thought process Disorganized, sometimes answers with unrelated information, vague. Gives conflicting reports, capable of withholding information. Unable to explain events leading to admission. Suicidal Thoughts: denies suicidal thoughts Homicidal Thoughts: denies homicidal thoughts Hallucinations: no auditory hallucinations and no visual hallucinations Cognition: + recent memory not intact, + remote memory not intact and + attention not intact Estimated Intelligence: + below average estimated intelligence Insight: + poor insight Judgement: + poor judgement Vital Signs (Past 24 Hours) Last Vital Signs Temp 36.6 C 12/03/20 20:00 Pulse 120 H 12/03/20 06:52 Resp 16 12/03/20 06:51 BP 98/67 L 12/03/20 06:52 Pulse Ox 97 12/01/20 15:00 Results & Data ([facility]) Current Inpatient Medications Current Inpatient Medications: Current Inpatient Medications Acetaminophen (Acetaminophen 325 Mg Tab) 650 mg PO Q4H PRN PRN Reason: Headache or Minor Fever Stop: 12/31/20 15:19 Al Hydrox/Mg Hydrox/Simethicone (Aluminum/Magnesium Susp 30 Ml Udc) 30 ml PO Q4 H PRN PRN Reason: GI Upset Stop: 12/31/20 15:19 Bismuth Subsalicylate (Bismuth Subsalicylate Liqd 236 Ml) 15 ml PO PRN PRN PRN Reason: Loose Stool Stop: 12/31/20 15:19 Hydroxyzine HCl (Hydroxyzine Hcl 25 Mg Tab) 50 mg PO HSZ PRN PRN Reason: Insomnia Stop: 12/31/20 15:19 Hydroxyzine HCl (Hydroxyzine Hcl 25 Mg Tab) 25 mg PO Q4H PRN PRN Reason: Anxiety Stop: 12/31/20 15:19 Lorazepam (Lorazepam 1 Mg Tab) 1 mg PO BID NOHEMY; Taper Stop: 12/08/20 09:44 Last Admin: 12/03/20 20:11 Dose: 1 mg Documented by: Magnesium Hydroxide (Magnesium Hydroxide Susp 30 Ml Udc) 30 ml PO DAILY PRN PRN Reason: Constipation Stop: 12/31/20 15:19 Quetiapine Fumarate (Quetiapine Fumarate 100 Mg Tablet) 100 mg PO HS NOHEMY Stop: 12/31/20 20:59 Last Admin: 12/03/20 20:12 Dose: 100 mg Documented by: Quetiapine Fumarate (Quetiapine Fumarate 25 Mg Tablet) 50 mg PO Q6 PRN PRN Reason: Anxiety/Agitation Stop: 12/31/20 17:59 Sodium Chloride (Sodium Chloride 0.65% Na Soln 45 Ml ([place])) 1 - 2 sprays NA PRN PRN PRN Reason: Nasal Dryness/Congestion Stop: 12/31/20 15:19 Mental Health & Subst Abuse Tx Psychiatrist Name of Psychiatrist: Pam[facility] Psychiatrist's Psychiatric Appointment Comment: Virtual - will email you directions Therapist Name of Therapist: Pamella Therapist's Therapy Appointment Comment: Virtual - will email you directions Post Discharge Appointments Contact Information Discharge Discharge Address: [address] [place] [address]
[2020-12-04] MEDS: LORazepam 1 MG TAB PO SCH ×2 (08:59→20:51)
[2020-12-04] MEDS: hydrOXYzine HCl 25 MG TAB PO PRN (16:45)
[2020-12-04] MEDS: ACETAMINOPHEN 325 MG TAB PO PRN (16:45)
[2020-12-04] MEDS: QUEtiapine FUMARATE 100 MG TABLET PO SCH (20:50)
[2020-12-05] MEDS: LORazepam 1 MG TAB PO SCH ×2 (09:36→20:00)
--- NOTE | 2020-12-05 09:38 | Psychiatric Progress Note ---
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 She did agree to a low dose of quetiapine at bedtime and has found it helpful for sleep and anxiety. Pt is reporting willingness to continue this medication after discharge. She remains somewhat isolative, but has been responding well to staff's encouragement to more actively participate in group programming. (1) Acute paranoia: 12/02 The patient was admitted to the [facility] ([facility] unit) on q15 min checks (behavioral with suicide precautions) for safety. The patient will participate in group, recreational, and milieu therapies and will be offered additional individual and family sessions as clinically appropriate. likely drug induced, continue Seroquel as is accepting doses when offered. She was made aware I am not resuming Xanax and will cover withdrawal with prn Ativan. I'm concerned about neurontin use given abuse potential as well. Very poor historian at this point so staff to gather records. Fasting glu and cholesterol panel completed this am as anticipated she will be discharged on some form of atypical. 12/03 - Continue quetiapine - patient refusing to consider higher dosage, but agreeable with taking medication "just at bedtime." Pt is denying confusion, paranoia, delusions during conversation with this provider, though I'm not inclined to believe this is a reliable report. Continue to engage patient in treatment as appropriate with ongoing monitoring for delusions. - Ordered a scheduled taper for lorazepam, patient reminded of plan for discontinuation. 12/04 -Patient remains disorganized, cognitively impaired, unclear how close she is to baseline as she has been unable to identify a support for collateral information. She is isolating in her room and refusing groups, which makes it more difficult to tell how well she is functioning. Encouraged her to be out of her room, participating in groups, and working on her coping skills. -Psychosis appears substance-induced, as she has had multiple drug screens + methamphetamine and benzodiazepines in the past 3 months. Despite laboratory evidence of meth use, she continues to deny it, and is likewise not honest about her legal problems. She continues to refuse the recommendation for inpatient rehab, but is willing for IOP and has been referred to [facility]. 12/05 - Pt continues to be somewhat isolative, but has responded to encouragement for more committed group participation. She is not clearly verbalizing any delusional thought content. - Reporting willingness to continue quetiapine after discharge, continues to be unwilling to address the substance abuse component of her presentation - Pt is denying SI/HI, hallucinations, and delusional thinking - 302 commitment expires tomorrow afternoon, anticipate discharge tomorrow morning unless there are acute changes to presentation (2) Methamphetamine abuse: 12/04 - UDS + methamphetamine/amphetamine, MDMA, benzodiazepines -Complete taper off benzodiazepines, and do not recommend she be prescribed controlled substances due to her ongoing substance abuse, DUI, and high risk of abuse/misuse/negative outcomes. -Will submit mandated report form to [facility] given driving while intoxicated, ongoing substance use. Patient informed, advised not to drive until she has become sober, is stable, and cleared by her outpatient physician. Inventory Assets Strengths: accepting of status/treatment so far Needs: outpatient provider Risk Factors Assessment Male: No : Yes Do You Have Access To A Gun?: No Mental Health Diagnoses: Yes Substance Use Disorders: Yes (presumably) Previous Attempt: No Previous Psychiatric Hospitalization: Yes Smoker: Yes Protective Factors Assessment Employed: No Interval History Identifying Information JALIL COOPER is a 35-year-old F who currently lives in [place] alone, has a history of presenting to ED with delusional behavior, and was admitted on 12/01/20 15:21 on a 201 voluntary 302 involuntary commitment for disorganized and delusional behavior. Chief Complaint "I'm ok. Thanks." Review of Systems Notes Constitutional: denied Cardiovascular: denied Respiratory: denied Gastrointestinal: denied Neurological: denied Psychiatric: denies symptoms other than stated above Total of at least 10 systems reviewed, pertinent positives as above and in HPI. Sleep Information Total Hours of Sleep: 8.75 Sleep Comments: pt on q-15 minute check Meal Information Percent Meal Consumed - Breakfast: 100 Percent Meal Consumed - Lunch: 75 Percent Meal Consumed - Dinner: 100 Nutrition Comment: per meal record Subjective Subjective Patient was seen & assessed and interval progress reviewed with nursing and social work. Staff report the patient attending community meeting and showered last evening. She also requested a prn dose of quetiapine at one point, which she found helpful. Pt has not been verbalizing delusional thought content, though has been isolative still. Pt was seen today to assess progress since admission. She reports she is feeling "ok. Thanks." She denied acute needs and stated she was planning to attend more groups today. We reviewed that this would be helpful to prepare her for upcoming discharge and to give her the opportunity to process any additional concerns. Pt denies confusion, delusions, paranoia and hallucinations. She denies SI/HI. Pt was updated on the expiration of her 302 tomorrow and we discussed likely discharge in the morning. Pt reported feeling ready and excited for this. Pt reports willingness to continue the quetiapine after discharge as she does feel it is helpful for sleep and anxiety. Pt also reported willingness to follow-up with outpatient treatment appointments. Pt denied other needs or concerns today. Physical Exam Psychiatric Orientation: alert, oriented x 3 and + guarded (superficially cooperative, polite but short responses to questions) Apperance: appropriately dressed, + disheveled and appeared stated age Eye Contact: + fair eye contact Motor Behavior: no abnormal motor movements (observed while laying/sitting in bed ) Speech: normal rate/rhythm/volume of speech (generally only offering brief responses to questions) Affect: + blunted affect (subdued) Mood: no depressed mood and no anxious mood Thought Process: goal directed thought process and + concrete thought process Thought Content: reality based without delusions; not paranoid and no hopelessness Suicidal Thoughts: denies suicidal thoughts, denies suicidal plan and denies suicidal intent Homicidal Thoughts: denies homicidal thoughts Hallucinations: no auditory hallucinations and no visual hallucinations Cognition: attention grossly intact and language grossly intact Estimated Intelligence: + below average estimated intelligence Insight: + limited insight Judgement: + limited judgement Vital Signs (Past 24 Hours) Last Vital Signs Temp 37.1 C 12/05/20 06:00 Pulse 101 H 12/05/20 06:45 Resp 16 12/05/20 06:00 BP 88/61 L 12/05/20 06:45 Pulse Ox 97 12/01/20 15:00 Results & Data ([facility]) Current Inpatient Medications Current Inpatient Medications: Current Inpatient Medications Acetaminophen (Acetaminophen 325 Mg Tab) 650 mg PO Q4H PRN PRN Reason: Headache or Minor Fever Stop: 12/31/20 15:19 Last Admin: 12/04/20 16:45 Dose: 650 mg Documented by: Al Hydrox/Mg Hydrox/Simethicone (Aluminum/Magnesium Susp 30 Ml Udc) 30 ml PO Q4H PRN PRN Reason: GI Upset Stop: 12/31/20 15:19 Bismuth Subsalicylate (Bismuth Subsalicylate Liqd 236 Ml) 15 ml PO PRN PRN PRN Reason: Loose Stool Stop: 12/31/20 15:19 Hydroxyzine HCl (Hydroxyzine Hcl 25 Mg Tab) 50 mg PO HSZ PRN PRN Reason: Insomnia Stop: 12/31/20 15:19 Hydroxyzine HCl (Hydroxyzine Hcl 25 Mg Tab) 25 mg PO Q4H PRN PRN Reason: Anxiety Stop: 12/31/20 15:19 Last Admin: 12/04/20 16:45 Dose: 25 mg Documented by: Lorazepam (Lorazepam 1 Mg Tab) 0.5 mg PO BID NOHEMY; Taper Stop: 12/08/20 09:44 Last Admin: 12/04/20 20:51 Dose: 0.5 mg Documented by: Magnesium Hydroxide (Magnesium Hydroxide Susp 30 Ml Udc) 30 ml PO DAILY PRN PRN Reason: Constipation Stop: 12/31/20 15:19 Quetiapine Fumarate (Quetiapine Fumarate 100 Mg Tablet) 100 mg PO HS NOHEMY Stop: 12/31/20 20:59 Last Admin: 12/04/20 20:50 Dose: 100 mg Documented by: Quetiapine Fumarate (Quetiapine Fumarate 25 Mg Tablet) 50 mg PO Q6 PRN PRN Reason: Anxiety/Agitation Stop: 12/31/20 17:59 Last Admin: 12/04/20 13:18 Dose: 50 mg Documented by: Sodium Chloride (Sodium Chloride 0.65% Na Soln 45 Ml ([place])) 1 - 2 sprays NA PRN PRN PRN Reason: Nasal Dryness/Congestion Stop: 12/31/20 15:19 Mental Health & Subst Abuse Tx Psychiatrist Name of Psychiatrist: Pamella Psychiatrist's Time of Appointment with Psychiatrist: Will be scheduled after the intake Psychiatric Appointment Comment: Virtual - will email you directions Therapist Name of Therapist: Pamella Jaime Therapist's Date of Therapist Appointment: 12/10/20 Time of Therapist Appointment: 12:00 p.m. Therapy Appointment Comment: Virtual - will email you directions Post Discharge Appointments Contact Information Discharge Discharge Address: [address] [place] [id number]
[2020-12-05] MEDS: hydrOXYzine HCl 25 MG TAB PO PRN (16:15)
[2020-12-05] MEDS: ACETAMINOPHEN 325 MG TAB PO PRN (16:47)
[2020-12-05] MEDS: QUEtiapine FUMARATE 100 MG TABLET PO SCH (20:01)
[2020-12-06] MEDS: LORazepam 1 MG TAB PO SCH (08:45)
--- NOTE | 2020-12-06 10:39 | Discharge Summary ---
Date of Service December 06, 2020 History of Present Illness Patient was brought in my police after spending the night in the [place]ina[place], wandering without shoes, and knocking on doors in [place] asking incoherent questions. She indicated to police that she was running from her mother who was chasing her with a taser. She was unkempt and believed that she had blood on her because she "". When reality tested on this she said a healer removed the blood from her clothes. Head imaging was negative but she tested positive for amphetamines, MDMA, benzodiazepines. She denies using meth and gave no particular explaination for why she was in [place] and attributed positive tox screen to OTC diet pills and decongestants. She denies running out of Xanax or experiencing withdrawal. She states "I only take that and maybe Neurontin here or there, I don't need that Seroquel". Reviewed that records are pending from her outpatient psychiatrist and then she stated Dr. Del Real's office is closed and she only communicates with him via the pharmacy. Of note she was seen in the ED, again positive for presumed meth in Aug, 2020 believing that she was leaking spinal fluid through her skin, also delusions about terrorism involving her doctor, and 07/19 for an implantable device. She essentially denies symptoms of anxiety, depression, issa, "I'm done talking now, I'm really fine". Physical Exam Psychiatric Orientation: alert, oriented x 3 and cooperative Apperance: appropriately dressed and appropriately groomed Eye Contact: + fair eye contact Motor Behavior: steady gait and station Speech: normal rate/rhythm/volume of speech Affect: euthymic affect "I'm Okay." Thought Process: goal directed thought process Thought Content: reality based without delusions Suicidal Thoughts: denies suicidal thoughts Homicidal Thoughts: denies homicidal thoughts Hallucinations: no auditory hallucinations, no visual hallucinations and no tactile hallucinations Cognition: recent memory grossly intact, remote memory grossly intact, attention grossly intact and language grossly intact 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 Estimated Intelligence: average estimated intelligence Insight: + poor insight Patient does recognize her need for both chemical dependency and psychiatric treatment on an outpatient basis Judgement: + limited judgement Vital Signs (Past 24 Hours) Last Vital Signs Temp 36.7 C 12/06/20 06:26 Pulse 93 H 12/06/20 06:27 Resp 18 12/06/20 06:26 BP 86/58 L 12/06/20 06:27 Pulse Ox 97 12/01/20 15:00 Principal Diagnosis Drug-induced psychosis Psychiatric Data During the course of hospitalization the patient was offered various modalities of psychiatric treatment and education. These included individual, group, recreational, and chemotherapy. The patient was started on quetiapine, and the dose was titrated to 100 mg at at bedtime. Material risks and anticipated benefits of quetiapine were reviewed with the patient and she indicated understanding. She also indicated that she tolerated it well, but voiced some ambivalence about whether she would choose to continue taking it following discharge. Quetiapine 25 mg every 6 hours was offered as an as needed medication and did seem to be effective for more severe anxiety. For ge neralized anxiety, the patient was offered hydroxyzine 25 mg as a as needed and this also was effective in managing generalized anxiety. With time and treatment the patient's reality testing improved. She reported that she realized that her mother was not actually planning to taser her, and since explained that "it just felt like it at the time." The patient explained many of her behaviors immediately prior to admission; behavior such as knocking on people's doors in the middle the night as being a function of "panic attacks," although she did allow that she had also been using methamphetamine and alprazolam. The patient consistently denied any thoughts of suicide. Similarly, she reported that she had no thoughts of causing physical harm to the person or property of others. The did not experience physical withdrawal from chemical substances. She had been placed on a lorazepam taper because of her history of Xanax use prior to admission, and the taper was discontinued on the day of discharge. The patient's insight appeared to be fairly poor, her potential for relapse seems fairly high, but she was found not to meet criteria for continued involuntary inpatient hospitalization as of 12/06/20 Day of Discharge Assessment On the day of discharge the patient was found to be pleasant and fully cooperative with the discharge assessment. Patient speech was spontaneous and was delivered at a normal rate, rhythm and volume. She describes her mood as "a lot better," and her affect was found to be euthymic. The patient's thought p rocesses demonstrated tight associations. Her thought content was devoid of any delusional material. The patient addressed the fact that she had claimed that her mother was chasing her and trying to taser her by saying, "Well, at the time, that is just how it felt. I was in the middle of having panic attacks and, yes, I had used some drugs." The patient reports that she is not experiencing any perceptual disturbances such as visual, auditory, or tactile hallucinations. She strongly denies any thoughts of suicide and is future oriented to the degree that she describes her plan to continue treatment on an outpatient basis at [facility] She is aware of the date and time of her appointment, and she indicates that it is her plan to keep the appointments and to continue in treatment. She also said that she would continue to take quetiapine at bedtime and as prescribed during the day for anxiety, although she does express some ambivalence about this. The patient also reports no thoughts of causing physical harm to the person or property of others. She does not least voiced an intent to maintain abstinence, although her prognosis in this regard, given her history, is at least guarded. At the same time, she says that she has no intention of entering residential rehabilitation and expects to maintain sobriety through outpatient treatment and "willpower." Transition of Care Transition Of Care Record: was reviewed with the patient Advance Directives Advance Directives Information Provided: Yes Advance Directives: No Mental Health Advance Directive: No Advance Directives on File: No Living Will: No Power of Wet Machine Operator: No Advance Directives Reason:: Declines as Mental Health Visit. Risk Factors Assessment Male: No : Yes Do You Have Access To A Gun?: No Mental Health Diagnoses: Yes Substance Use Disorders: Yes (presumably) Previous Attempt: No Previous Psychiatric Hospitalization: Yes Hopelessness: No Smoker: Yes Protective Factors Assessment Amish Beliefs: Yes : No Responsible for Young Children: No Employed: No Stable Relationships: Yes Supportive Family: Yes Good Rapport with Provider: No Absence of Any Risk Factors Above: No Tobacco Cessation at Discharge Tobacco Cessation Medication Prescribed at Discharge: Offered & Pt Refused Practical counseling provided including: recognizing danger situations, developing coping skills and providing basic information about quitting Tobacco Cessation Outpatient Followup: Referral for outpatient treatment offered and refused Antipsychotic Medications Quetiapine for psychotic features and mood stabilization. Total Time Total Time Spent: Greater Than 30 Minutes Total Time Includes: Examination of the patient, Discharge Planning, Medication Reconciliation and Communication with other providers Discharge Data Lab Results 12/01/20 12/01/20 12/01/20 10:25 10:25 10:25 WBC RBC Hgb Hct MCV MCH MCHC RDW Std Deviation RDW Coeff of Jodi Plt Count MPV Immature Gran % (Auto) Neut % (Auto) Lymph % (Auto) [place] % (Auto) Eos % (Auto) Baso % (Auto) Neut # (Auto) Lymph # (Auto) [place] # (Auto) Eos # (Auto) Baso # (Auto) Immature Gran # (Auto) Sodium Potassium Chloride Carbon Dioxide Anion Gap BUN Creatinine Est Cr Clr Drug Dosing Est GFR ( Amer) Est GFR (Non-Af Amer) BUN/Creatinine Ratio Glucose Fasting Glucose Calcium Total Bilirubin AST ALT Alkaline Phosphatase Total Protein Albumin Globulin Albumin/Globulin Ratio Triglycerides Cholesterol LDL Cholesterol, Calc VLDL Cholesterol, Calc HDL Cholesterol Cholesterol/HDL Ratio TSH Urine Color Yellow Urine Appearance Turbid A Urine pH 6.5 Ur Specific [place] 1.010 Urine Protein 1+ H Urine Glucose (UA) Negative Urine Ketones Trace H Urine Blood Negative Urine Nitrite Negative Urine Bilirubin Negative Urine Urobilinogen Negative Ur Leukocyte Esterase Negative Urine WBC (Auto) >30 H Urine RBC (Auto) 0-4 U Hyaline Cast (Auto) 1-5 U Epithel Cells (Auto) >30 H Urine Bacteria (Auto) 2+ H Urine Crystals Not Reportable Urine Yeast Not Reportable Urine Test Negative Salicylates Urine Opiates Screen Neg Ur Methadone, Qual Neg Acetaminophen Urine Barbiturates Neg Ur Phencyclidine (PCP) Neg U Amphetamin/Meth Scrn Pos H MDMA (Ecstasy) Screen Pos H U Benzodiazepines Scrn Pos H Ur Cocaine Metabolite Neg U Marijuana (THC) Screen Neg Ethyl Alcohol mg/dL COVID-19 Eval Order SARS-CoV-2 (PCR) Influenza Type A (PCR) Influenza Type B (PCR) RSV (RT-PCR) 12/01/20 12/01/20 12/01/20 10:29 10:29 10:29 WBC 10.90 H RBC 4.72 Hgb 15.4 Hct 41.5 MCV 87.9 MCH 32.6 MCHC 37.1 H RDW Std Deviation 42.3 RDW Coeff of Jodi 13.0 Plt Count 324 MPV 9.6 Immature Gran % (Auto) 0.2 Neut % (Auto) 70.7 Lymph % (Auto) 16.9 [place] % (Auto) 11.2 Eos % (Auto) 0.6 Baso % (Auto) 0.4 Neut # (Auto) 7.72 H Lymph # (Auto) 1.84 [place] # (Auto) 1.22 H Eos # (Auto) 0.06 Baso # (Auto) 0.04 Immature Gran # (Auto) 0.02 Sodium 136 Potassium 3.7 Chloride 104 Carbon Dioxide 24 Anion Gap 8.0 BUN 10 Creatinine 0.94 Est Cr Clr Drug Dosing 78.5 Est GFR ( Amer) 91.1 Est GFR (Non-Af Amer) 78.6 BUN/Creatinine Ratio 10.5 Glucose 87 Fasting Glucose Calcium 9.4 Total Bilirubin 0.9 AST 76 H ALT 88 H Alkaline Phosphatase 70 Total Protein 7.9 Albumin 4.4 Globulin 3.5 Albumin/Globulin Ratio 1.3 Triglycerides Cholesterol LDL Cholesterol, Calc VLDL Cholesterol, Calc HDL Cholesterol Cholesterol/HDL Ratio TSH 2.190 Urine Color Urine Appearance Urine pH Ur Specific [place] Urine Protein Urine Glucose (UA) Urine Ketones Urine Blood Urine Nitrite Urine Bilirubin Urine Urobilinogen Ur Leukocyte Esterase Urine WBC (Auto) Urine RBC (Auto) U Hyaline Cast (Auto) U Epithel Cells (Auto) Urine Bacteria (Auto) Urine Crystals Urine Yeast Urine Test Salicylates 1.9 L Urine Opiates Screen Ur Methadone, Qual Acetaminophen < 2 L Urine Barbiturates Ur Phencyclidine (PCP) U Amphetamin/Meth Scrn MDMA (Ecstasy) Screen U Benzodiazepines Scrn Ur Cocaine Metabolite U Marijuana (THC) Screen Ethyl Alcohol mg/dL COVID-19 Eval Order SARS-CoV-2 (PCR) Influenza Type A (PCR) Influenza Type B (PCR) RSV (RT-PCR) 12/01/20 12/01/20 12/01/20 10:29 11:53 11:53 WBC RBC Hgb Hct MCV MCH MCHC RDW Std Deviation RDW Coeff of Jodi Plt Count MPV Immature Gran % (Auto) Neut % (Auto) Lymph % (Auto) [place] % (Auto) Eos % (Auto) Baso % (Auto) Neut # (Auto) Lymph # (Auto) [place] # (Auto) Eos # (Auto) Baso # (Auto) Immature Gran # (Auto) Sodium Potassium Chloride Carbon Dioxide Anion Gap BUN Creatinine Est Cr Clr Drug Dosing Est GFR ( Amer) Est GFR (Non-Af Amer) BUN/Creatinine Ratio Glucose Fasting Glucose Calcium Total Bilirubin AST ALT Alkaline Phosphatase Total Protein Albumin Globulin Albumin/Globulin Ratio Triglycerides Cholesterol LDL Cholesterol, Calc VLDL Cholesterol, Calc HDL Cholesterol Cholesterol/HDL Ratio TSH Urine Color Urine Appearance Urine pH Ur Specific [place] Urine Protein Urine Glucose (UA) Urine Ketones Urine Blood Urine Nitrite Urine Bilirubin Urine Urobilinogen Ur Leukocyte Esterase Urine WBC (Auto) Urine RBC (Auto) U Hyaline Cast (Auto) U Epithel Cells (Auto) Urine Bacteria (Auto) Urine Crystals Urine Yeast Urine Test Salicylates Urine Opiates Screen Ur Methadone, Qual Acetaminophen Urine Barbiturates Ur Phencyclidine (PCP) U Amphetamin/Meth Scrn MDMA (Ecstasy) Screen U Benzodiazepines Scrn Ur Cocaine Metabolite U Marijuana (THC) Screen Ethyl Alcohol mg/dL < 3.0 COVID-19 Eval Order [facility] at [facility] SARS-CoV-2 (PCR) NEGATIVE Influenza Type A (PCR) Negative Influenza Type B (PCR) Negative RSV (RT-PCR) Negative 12/02/20 12/02/20 08:02 Unknown WBC RBC Hgb Hct MCV MCH MCHC RDW Std Deviation RDW Coeff of Jodi Plt Count MPV Immature Gran % (Auto) Neut % (Auto) Lymph % (Auto) [place] % (Auto) Eos % (Auto) Baso % (Auto) Neut # (Auto) Lymph # (Auto) [place] # (Auto) Eos # (Auto) Baso # (Auto) Immature Gran # (Auto) Sodium Potassium Chloride Carbon Dioxide Anion Gap BUN Creatinine Est Cr Clr Drug Dosing Est GFR ( Amer) Est GFR (Non-Af Amer) BUN/Creatinine Ratio Glucose Fasting Glucose 87 Calcium Total Bilirubin AST ALT Alkaline Phosphatase Total Protein Albumin Globulin Albumin/Globulin Ratio Triglycerides 97 Cholesterol 161 LDL Cholesterol, Calc 107 VLDL Cholesterol, Calc 19 HDL Cholesterol 35 Cholesterol/HDL Ratio 5 TSH Urine Color Yellow Urine Appearance Clear Urine pH 6.5 Ur Specific [place] 1.013 Urine Protein Negative Urine Glucose (UA) Negative Urine Ketones Trace H Urine Blood Negative Urine Nitrite Negative Urine Bilirubin Negative Urine Urobilinogen Negative Ur Leukocyte Esterase Negative Urine WBC (Auto) Urine RBC (Auto) U Hyaline Cast (Auto) U Epithel Cells (Auto) Urine Bacteria (Auto) Urine Crystals Urine Yeast Urine Test Salicylates Urine Opiates Screen Ur Methadone, Qual Acetaminophen Urine Barbiturates Ur Phencyclidine (PCP) U Amphetamin/Meth Scrn MDMA (Ecstasy) Screen U Benzodiazepines Scrn Ur Cocaine Metabolite U Marijuana (THC) Screen Ethyl Alcohol mg/dL COVID-19 Eval Order SARS-CoV-2 (PCR) Influenza Type A (PCR) Influenza Type B (PCR) RSV (RT-PCR) Hospital Course (1) Acute paranoia: 12/02 The patient [facility] on q15 min checks (behavioral with suicide precautions) for safety. The patient will participate in group, recreational, and milieu therapies and will be offered additional individual and family sessions as clinically appropriate. likely drug induced, continue Seroquel as is accepting doses when offered. She was made aware I am not resuming Xanax and will cover withdrawal with prn Ativan. I'm concerned about neurontin use given abuse potential as well. Very poor historian at this point so staff to gather records. Fasting glu and cholesterol panel completed this am as anticipated she will be discharged on some form of atypical. 12/03 - Continue quetiapine - patient refusing to consider higher dosage, but agreeable with taking medication "just at bedtime." Pt is denying confusion, paranoia, delusions during conversation with this provider, though I'm not inclined to believe this is a reliable report. Continue to engage patient in treatment as appropriate with ongoing monitoring for delusions. - Ordered a scheduled taper for lorazepam, patient reminded of plan for discontinuation. 12/04 -Patient remains disorganized, cognitively impaired, unclear how close she is to baseline as she has been unable to identify a support for collateral information . She is isolating in her room and refusing groups, which makes it more difficult to tell how well she is functioning. Encouraged her to be out of her room, participating in groups, and working on her coping skills. -Psychosis appears substance-induced, as she has had multiple drug screens + methamphetamine and benzodiazepines in the past 3 months. Despite laboratory evidence of meth use, she continues to deny it, and is likewise not honest about her legal problems. She continues to refuse the recommendation for inpatient rehab, but is willing for IOP and has been referred to [facility]. 12/05 - Pt continues to be somewhat isolative, but has responded to encouragement for more committed group participation. She is not clearly verbalizing any delusional thought content. - Reporting willingness to continue quetiapine after discharge, continues to be unwilling to address the substance abuse component of her presentation - Pt is denying SI/HI, hallucinations, and delusional thinking - 302 commitment expires tomorrow afternoon, anticipate discharge tomorrow morning unless there are acute changes to presentation 12/06 -No further evidence of any delusional thought content. -302 commitment expires today. The patient indicates that she is unwilling to agree to stay in the hospital as a voluntary patient, and also verbalizes a refusal to consider residential chemical dependency treatment at this time. -The patient convincingly denies any suicidal or homicidal ideations. There is no evidence of any perceptual disturbances, and no evidence of physical withdrawal from chemical substances at this point -Willing to continue quetiapine in an outpatient basis, although she does come across as somewhat ambivalent about this. -The patient reports that she fully intends to keep her outpatient appointment at [facility] and understands that this will be for both chemical dependency and psychiatric treatment. -The patient is being discharged today. (2) Methamphetamine abuse: 12/04 - UDS + methamphetamine/amphetamine, MDMA, benzodiazepines -Complete taper off benzodiazepines, and do not recommend she be prescribed controlled substances due to her ongoing substance abuse, DUI, and high risk of abuse/misuse/negative outcomes. -Will submit mandated report form to [facility] given driving while intoxicated, ongoing substance use. Patient informed, advised not to drive until she has become sober, is stable, and cleared by her outpatient physician. 12/06 --patient has successfully been tapered off benzodiazepines through a lorazepam taper and lorazepam is being discontinued at discharge. There is no evidence of any physical withdrawal. -The patient's outpatient treatment will include ongoing chemical dependency treatment. Mental Health & Subst Abuse Tx Psychiatrist Name of Psychiatrist: Pamella Psychiatrist's Time of Appointment with Psychiatrist: Will be scheduled after the intake Psychiatric Appointment Comment: Virtual - will email you directions Psychiatrist Release of Information: Obtained, Reviewed and Signed Therapist Name of Therapist: Pamella Jaime Therapist's Date of Therapist Appointment: 12/10/20 Time of Therapist Appointment: 12:00 p.m. Therapy Appointment Comment: Virtual - will email you directions Therapist Release of Information: Obtained, Reviewed and Signed Post Discharge Appointments Smoking Cessation Counseling Tobacco Cessation Medication Prescribed at Discharge: Offered & Pt Refused Contact Information Discharge Discharge Address: [address] [place] [id number] Discharge Plan Discharge Items Patient Disposition: Home - Self-Care Reason For Visit: PSYCHOSIS Discharge Diagnosis: Substance Induced Psychosis. Activity: Resume your previous activity Driving/Machine Use: No Driving Non-emergency contact: Psychiatrist and Therapist Call non-emergency contact if: you have any medication questions and your symptoms worsen Follow-up/Referrals: PCP,NO [Primary Care Provider] - Diet: Regular Addtl Attending Provider Instructions: SPECIAL CARE INSTRUCTIONS: 1. Follow through with your scheduled aftercare appointments. If unable to keep an appointment, please call to reschedule. 2. Take your medication only as prescribed. Medication should not be changed or stopped without the approval of your doctor. In the event of worsening symptoms or concerns about side effects, contact your doctor immediately. 3. Utilize new healthy coping skills, anger management skills, and stress management skills learned during your hospitalization. Journal feelings and process them with a support person. Identify stressors or situations that may result in relapse, deterioration or inappropriate behaviors and develop a plan to deal with those issues. 4. If your coping skills are ineffective and you are in crisis, contact your outpatient providers for direction. If unable to reach your providers, please call the [facility] CRISIS LINE AT , go to the [facility] walk-in center at [address], [place], or go to the closest Emergency Room. 5. Avoid alcohol and un-prescribed drugs. 6. You have been provided with the Mental Health Advance Directives Pamphlet for your review. AFTERCARE APPOINTMENTS: * Please call your insurance company prior to your scheduled appointment to confirm your aftercare providers are covered. Take your insurance information to your appointments. WHO TO CALL AND WHEN: Medical Emergencies: For questions or emergencies related to your hospital stay, please contact the Inpatient Behavioral Health Unit at [phone]. A intake clinician is on-call 22/03 for the Behavioral Health Unit for emergencies At any time you feel your situation is an emergency, you may also call 911 immediately. Pending Studies at Discharge: No Stand-Alone Forms: My [facility], Smoking Cessation Medications and DC Order Prescriptions: New quetiapine 25 mg Tablet 25 mg PO Q6 Qty: 10 RF: 2 quetiapine 100 mg Tablet 100 mg PO HS Qty: 15 RF: 1 hydroxyzine HCl 25 mg Tablet 25 mg PO Q4H PRN (Reason: Anxiety) Qty: 15 RF: 2 Discontinued gabapentin 600 mg tablet 600 mg PO TID RF: 0 alprazolam 1 mg tablet 1 mg PO TID RF: 0 Discharge Orders: Discharge Order (Routine); Ordered 12/06/20 Ordered By: Yvon Cloud/Other Patient Handouts: Recovering from Addiction Coping ..., Taking Opioid Medicines, ED Drug Abuse, ED Abuse Drug Narcotic Sedative Rx Admission Data Admit Date/Time: 12/01/20 15:21 Attending Provider: Maia Caldwell Admit Provider: Maia Caldwell Primary Care Provider: PCP,NO Other Interventions: PSY Interdisciplinary Discharge Planning Last Done: 12/06/20 10:19 Coding [place] [address] D/C day mgmt > 30 min Patient Type Established History Expanded Problem Focused Exam Expanded Problem Focused Medical Decision Making Moderate Complexity Diagnoses Acute paranoia F22 Methamphetamine abuse F15.10 Time Spent (min) 50
[2020-12-06] MEDS ORDERED: DESTROY THIS MEDICATION ONE (11:27)
[2020-12-06 14:02] LABS: 7-Aminoclonaz, Confirm NEGATIVE ng/mL (<25); Amphetamine Urine, Confirm 1310 ng/mL (<250); Hydro-Alp Ur, GC/MS 275 ng/mL (<25); Hydroxyethylflurazepam, Conf NEGATIVE ng/mL (<50); Hydroxymidazolam Ur, GC/MS NEGATIVE ng/mL (<50); Hydroxytriazolam NEGATIVE ng/mL (<50); Lorazepam, Ur GC/MS NEGATIVE ng/mL (<50); MDA negative; MDEA negative; MDMA (Ecstasy) Urine, Confirm negative; Methamphetamine, Ur Confirm 13100 ng/mL (<250); Nordiazepam, Confirm NEGATIVE ng/mL (<50); Oxazepam Ur, GC/MS NEGATIVE ng/mL (<50); Temazepam, Confirm NEGATIVE ng/mL (<50)
== END 2020-12-06 12:02 | disposition home or self-care (01) | DRG 897 ==
LOC: ED 10:07 → 3S 15:21